=== PATIENT | female | born 1960 | race Two or more races ===

== ENCOUNTER → 2024-06-13 | Outpatient (CLI) | payer MEDICARE, MEDICAID, SELFPAY ==
--- NOTE | 2024-06-13 15:30 | XR_ITS ---
Examination: Retroperitoneal ultrasound, complete Technique: Multiple high resolution grayscale images of the retroperitoneum obtained, including kidneys and bladder. Exam date and time:June 13, 2024 1832 hrs. Indications: Abnormal proteinuria laboratory examination this week Findings: Right kidney 10.6 cm in the cortex 1.4 cm Left kidney 9.6 cm renal cortex 1.6 cm Bilateral parenchymal scar formation No bladder mass or bladder calculi Bladder prevoid volume 357 cc postvoid volume 337 cc Impression: Bilateral renal cortical thinning Mild bilateral renal parenchymal scar formation
== END | disposition home or self-care (01) ==
PROVIDERS: PCP Physician Assistant; Referring Provider Physician Assistant; Visit Provider Physician Assistant
DX: N28.89 Other specified disorders of kidney and ureter (principal)
CPT/HCPCS: 76770

== ENCOUNTER → 2024-12-19 | Outpatient (CLI) | payer MEDICARE, MEDICAID, SELFPAY ==
--- NOTE | 2024-12-19 15:30 | XR_ITS ---
EXAMINATION: Ultrasound soft tissue umbilicus TECHNIQUE: Grayscale sonographic images soft tissue umbilicus Date and time: December 19, 2024, 1525 hours INDICATIONS: Palpable lump right side of the umbilicus for years FINDINGS: Mass versus hernia at the area of concern 5.7 x 3.4 x 5.4 cm IMPRESSION: Mass at the area of concern versus hernia defect 5.7 x 3.4 x 5.4 cm, recommend CT scan abdomen pelvis post intravenous contrast follow-up
== END | disposition home or self-care (01) ==
LOC: CDIM 15:06
PROVIDERS: PCP Physician Assistant; Referring Provider Physician Assistant; Visit Provider Physician Assistant
DX: R19.05 Periumbilic swelling, mass or lump (principal)
CPT/HCPCS: 76882

== ENCOUNTER → 2025-01-08 | Outpatient (CLI) | payer MEDICARE, MEDICAID, SELFPAY ==
--- NOTE | 2025-01-08 09:45 | XR_ITS ---
Examination: Abdomen sonogram, complete Date and time of exam: January 08, 2025, 0935 hours INDICATIONS: Lower abdominal pain beginning 2 days ago. Technique: Multiple real-time grayscale transabdominal sonographic images of the abdomen have been obtained. Findings: Normal gallbladder. Normal common bile duct 0.2 cm Pancreatic head 2.0 cm Aorta not enlarged Liver 19.5 cm fatty infiltration Normal hepatopetal portal venous flow Patent IVC Right kidney 10.7 cm renal cortex 1.1 cm Left kidney 10.4 cm renal cortex 2.6 cm Mild renal scarring Spleen 8.8 cm IMPRESSION: Normal gallbladder Normal common bile duct Moderate hepatomegaly fatty infiltration
--- NOTE | 2025-01-08 09:45 | XR_ITS ---
Examination: Pelvic ultrasound, transabdominal, complete Technique: Transabdominal ultrasound of the pelvis performed using grayscale imaging Date and time of exam: January 08, 2025, 1006 hours INDICATIONS: Hematuria episodes beginning 1 month ago. FINDINGS: Absent uterus Absent right ovary Left ovary 2.3 cm arterial flow No fluid in the cul-de-sac IMPRESSION: Absent uterus absent right ovary No left ovarian mass
== END | disposition home or self-care (01) ==
PROVIDERS: PCP Physician Assistant; Referring Provider Physician Assistant; Visit Provider Physician Assistant
DX: K76.0 Fatty (change of) liver, not elsewhere classified (principal); Z90.710 Acquired absence of both cervix and uterus; Z90.721 Acquired absence of ovaries, unilateral
CPT/HCPCS: 76700; 76856